=== PATIENT | male | born 1980 ===

== ENCOUNTER 2017-04-14 03:22 | Emergency (ER) | payer SELFPAY ==
[2017-04-14 03:26] VITALS: RESP 16; O2SAT 98
--- NOTE | 2017-04-14 04:18 | C.PDOC ---
History Of Present Illness 37 year old male who presents to the ER with a complaint of pain and muffled hearing to the left ear for the past 2 days. Patient states he went to the beach on Saturday and got water in his left ear. Patient reports he has been using ear drops for the pain; however, tonight he has not had any relief. Denies sore throat, fever, or chills. Time Seen by Provider: 04/14/17 03:40 Chief Complaint (Nursing): ENT Problem History Per: Patient History/Exam Limitations: None Onset/Duration Of Symptoms: Days (2) Current Symptoms Are (Timing): Still Present Quality (Ear): denies: Discharge Symptoms Have Been: Continuous Anticoagulant/Antiplatlet Use?: Unknown Recent Aspirin Use: Unknown Past Medical History Reviewed: Historical Data, Nursing Documentation, Vital Signs Vital Signs: Last Vital Signs Temp 97.6 F 04/14/17 03:24 Pulse 82 04/14/17 03:24 Resp 16 04/14/17 03:24 BP 115/72 04/14/17 03:24 Pulse Ox 98 04/14/17 04:19 - Medical History PMH: No Chronic Diseases Surgical History: No Surg Hx Family History: States: Unknown Family Hx - Social History Hx Alcohol Use: No Hx Substance Use: No Review Of Systems Constitutional: Negative for: Fever, Chills ENT: Positive for: Ear Pain. Negative for: Ear Discharge, Throat Pain Physical Exam - Physical Exam Appears: Non-toxic, No Acute Distress Skin: Normal Color, Warm, Dry Head: Atraumatic, Normacephalic Ear(s): Left: Other (Mild Tragal/Auricular tenderness. Mild erythema to the canal. No bulging effusion.), Right: Normal Oral Mucosa: Moist Throat: Normal, No Erythema, No Exudate Neck: Normal, Supple Neurological/Psych: Oriented x3, Normal Speech, Normal Cognition ED Course And Treatment O2 Sat by Pulse Oximetry: 98 (Room air) Pulse Ox Interpretation: Normal Progress Note: Motrin administered. On reevaluation, patient feels better; advised to follow up with PMD. Disposition Counseled Patient/Family Regarding: Diagnosis, Need For Followup, Rx Given - Disposition Referrals: Fortunato Ramsey MD [Staff Provider] - Disposition: HOME/ ROUTINE Disposition Time: 04:16 Condition: STABLE Additional Instructions: Use meds as prescribed Follow up wit ENT or in clinic Return to ER if worse Prescriptions: Ibuprofen [Motrin Tab] 800 mg PO QID #20 tab Neomycin/Polymyxin/Hydrocortis [Cortisporin Otic Susp] 3 - 5 drop TOP TID #1 bottle Instructions: Otitis Externa (ED), Cerumen Impaction (ED) Print Language: SLOVAK - Clinical Impression Clinical Impression: Otitis externa, Cerumen impaction - Scribe Statement The provider has reviewed the documentation as recorded by the Scribkendy Blackmon All medical record entries made by the Sandieibkendy were at my direction and personally dictated by me. I have reviewed the chart and agree that the record accurately reflects my personal performance of the history, physical exam, medical decision making, and the department course for this patient. I have also personally directed, reviewed, and agree with the discharge instructions and disposition.
[2017-04-14 05:03] VITALS: BP 107/70; PULSE 65; TEMP 97.8
== END 2017-04-14 05:03 | disposition home or self-care (01) ==
LOC: C.ER 03:22
DX: H60.92 Unspecified otitis externa, left ear (principal); H61.22 Impacted cerumen, left ear